=== PATIENT | female | born 1970 | race Caucasian/White ===

== ENCOUNTER → 2016-10-23 | Outpatient (CLI) | payer BC, OTHER | LOC: MW.CHOBGYN 16:42 | PROVIDERS: ATTEND Nurse Practitioner Women's Health | DX: Z08 Encounter for follow-up examination after completed treatment for malignant neoplasm (principal); Z87.410 Personal history of cervical dysplasia | CPT/HCPCS: G0145 ==

== ENCOUNTER → 2016-10-27 | Outpatient (CLI) | payer BC, OTHER ==
--- NOTE | 2016-10-28 15:34 | MY ---
EXAMINATION: Bilateral digital mammography utilizing CAD. HISTORY: Screening exam. Comparison is made to previous studies dated 08/09/2013, 07/08/2011. FINDINGS: Bilateral heterogeneously dense breast tissue. Clips are noted within the outer right breast. No suspicious calcifications, masses or architectural distortions. No pathologic appearing lymph nodes, no abnormal skin thickening or nipple inversion. CAD highlighted regions appear normal at this time. IMPRESSION: BI-RADS category I - negative mammogram. Continued screening according to ACR-ACS guidelines sugg ested. THE FALSE-NEGATIVE RATE OF MAMMOGRAM IS APPROXIMATELY 10%. MANAGEMENT OF A PALPABLE ABNORMALITY MUST BE BASED UPON CLINICAL GROUNDS. SENSITIVITY FOR DETECTION OF ABNORMALITIES IN DENSE BREASTS IS LOW. NOTE: A letter will be sent to the patient regarding findings. [facility] -- CALLIE Petit [phone] - FAX [phone]
== END ==
LOC: MW.MAM 15:37
PROVIDERS: ATTEND Nurse Practitioner Women's Health
DX: Z12.31 Encounter for screening mammogram for malignant neoplasm of breast (principal)
CPT/HCPCS: G0202; G0202-26